=== PATIENT | female | born 1950 | race Caucasian/White ===

== ENCOUNTER 2017-10-27 09:34 | Outpatient (CLI) | payer MEDICARE, MEDICAID ==
[~2017-10-27] VITALS: Ht 160 cm; Wt 59.0 kg
[2017-10-27 10:09] VITALS: BP 129/65
[2017-10-27] MEDS ORDERED: BENAZEPRIL HCL10 MG ORAL (15:30)
[2017-10-27] MEDS ORDERED: METFORMIN HCL500 M1 ORAL (15:30)
--- NOTE | 2017-10-28 09:46 | GI Initial Consult Note ---
History of Present Illness General Date patient seen: October 27, 2017 Time patient seen: 10:00 Referring physician: TARUN Reason for Consultation: SEVERE GERD Present Illness HPI 67 year female patient who presents today c/o of severe GERD. States she has constant "gurgling" in her stomach and upset stomach. Takes probiotics in which she feels has helped. In addition, the patient presents with constipation having BMs every other day and abdominal bloating. Denies any unintentional weight loss or changes in dietary habits. No signs of abuse or neglect. Patient is not fall risk. Last colonoscopy has been over 5 years ago. Home Meds Reported Medications Benazepril Hcl* (BENAZEPRIL HCL*) 10 Mg Tablet, ORAL DAILY, TAB 10/27/17 Metformin Hcl* (METFORMIN HCL*) 500 Mg Tablet, ORAL TWICE A DAY, TAB 10/27/17 Med list reviewed/reconciled: Yes Patient History History Provided By: Patient, Medical Record PMH Narrative HTN DM Past Surgical History: Cataract Pertinent Family History: none Social History: Reports: other - occasional coffee; Denies: smoking, alcohol use, drug use Review of Systems All Other Systems: negative except mentioned in HPI Physical Exam Vital Signs Date Time Temp Pulse Resp B/P (MAP) Pulse Ox O2 Delivery O2 Flow Rate FiO2 10/27/17 10:09 97.5 67 16 129/65 97 97.5 Sp02 EP Interpretation: reviewed, normal General Appearance: well appearing, no apparent distress, alert Head: normocephalic EENT: PERRL/EOMI, normal ENT inspection Neck: supple Respiratory: normal breath sounds, no respiratory distress Cardiovascular: normal rate Gastrointestinal: normal inspection, non tender, soft, normal bowel sounds, non -distended Rectal: deferred Genitourinary: no CVA tenderness Musculoskeletal: normal inspection, back normal Neurologic: normal inspection, alert, oriented x3, responsive Psychiatric: normal inspection, judgement/insight normal, memory normal Skin: normal inspection, normal color, no rash, warm/dry, palpation normal, well hydrated Lymphatic: normal inspection, no adenopathy GI: Plan Problems: (1) HTN (hypertension) (2) GERD (gastroesophageal reflux disease) (3) Bloating (4) Constipated (5) Diabetes mellitus (6) Colonoscopy planned Plan EGD/colonoscopy scheduled 11/06/17. - CLD & (Nulytely/Suprep/Movi-Prep) prep instructions given and acknowledged by patient. - NPO @ MN day prior procedure explained. Rx Miralax will revisit abdominal bloating during next appointment, consider ?Xifaxan labs on day of procedure >> CBC, CMP, CEA Seen with Dr. Sebastian. Thank you for this patient referral. The patient was seen and examined at bedside and all new and available data was reviewed in the patients chart. I agree with the above findings, impression and plan. (Patient seen earlier today. Signature stamp does not reflect patient encounter time.). - MD Camilla L[facility]pezB[facility] October 28, 2017 09:46
[2017-11-06] MEDS ORDERED: SIMVASTATIN10 MG ORAL (08:13)
== END 2017-10-27 10:05 | disposition home or self-care (01) ==
LOC: PAN 09:34
DX: K21.9 Gastro-esophageal reflux disease without esophagitis (principal); K59.00 Constipation, unspecified; E11.9 Type 2 diabetes mellitus without complications; I10 Essential (primary) hypertension
CPT/HCPCS: 99202

== ENCOUNTER 2017-11-30 12:55 | Outpatient (CLI) | payer MEDICARE, MEDICAID ==
[~2017-11-30 12:55] MED LIST: BENAZEPRIL HCL10 MG ORAL; METFORMIN HCL500 M1 ORAL; SIMVASTATIN10 MG ORAL
[2017-11-30 13:00] VITALS: BP 138/74
--- NOTE | 2017-11-30 14:44 | GI Progress Note ---
Assessment/Plan Problems: (1) Bloating ICD Codes: R14.0 - Abdominal distension (gaseous) SNOMED: 338807501 (2) GERD (gastroesophageal reflux disease) ICD Codes: K21.9 - Gastro-esophageal reflux disease without esophagitis SNOMED: 779162266 (3) Diabetes mellitus ICD Codes: E11.9 - Type 2 diabetes mellitus without complications SNOMED: 58847825 (4) Constipated ICD Codes: K59.00 - Constipation, unspecified SNOMED: 99783385 (5) HTN (hypertension) ICD Codes: I10 - Essential (primary) hypertension SNOMED: 33122127 Status: stable Status Narrative Seen with Dr. Sebastian. Assessment/Plan SUMMARY OF FINDINGS reviewed with patient: 1. Gastritis, status post biopsy. 2. Three colonic polyps. 3. Internal hemorrhoids. RECOMMENDATIONS: 1. Follow up biopsy results. >> negative for H. pylori 2. Given three polyps, we recommend repeat colonoscopy in three years. RTC prn The patient was seen and examined at bedside and all new and available data was reviewed in the patients chart. I agree with the above findings, impression and plan. (Patient seen earlier today. Signature stamp does not reflect patient encounter time.). - Jaxson Sebastian MD Subjective Gastrointestinal/Abdominal: Reports: no symptoms Objective T 98.1 BP 138/74 P 81 99 RA General Appearance: WD/WN, no apparent distress, alert Cardiovascular: normal rate Respiratory/Chest: normal breath sounds, no respiratory distress Abdominal Exam: normal bowel sounds, non tender, soft Extremities: normal range of motion, non-tender Ca Sampson NP Nov 30, 2017 14:44
== END 2017-11-30 13:28 | disposition home or self-care (01) ==
LOC: PAN 12:55
DX: R14.0 Abdominal distension (gaseous) (principal); K21.9 Gastro-esophageal reflux disease without esophagitis; E11.9 Type 2 diabetes mellitus without complications; K59.00 Constipation, unspecified; I10 Essential (primary) hypertension; K29.70 Gastritis, unspecified, without bleeding; K63.5 Polyp of colon; K64.8 Other hemorrhoids
CPT/HCPCS: 99212

== ENCOUNTER 2019-04-12 09:20 | Outpatient (CLI) | payer MEDICARE, MEDICAID ==
--- NOTE | 2019-04-12 11:38 | General Progress Note ---
Assessment/Plan Problem List: (1) Constipated ICD Codes: K59.00 - Constipation, unspecified SNOMED: 67778381 (2) HTN (hypertension) ICD Codes: I10 - Essential (primary) hypertension SNOMED: 77999395 (3) GERD (gastroesophageal reflux disease) ICD Codes: K21.9 - Gastro-esophageal reflux disease without esophagitis SNOMED: 133193774 (4) Diabetes mellitus ICD Codes: E11.9 - Type 2 diabetes mellitus without complications SNOMED: 03098156 Assessment/Plan: SUMMARY OF FINDINGS: 1. Gastritis, status post biopsy. 2. Three colonic polyps. 3. Internal hemorrhoids. Align miralax repeat colon 2020 Subjective ROS Limited/Unobtainable: Yes Allergies: Coded Allergies: Shrimp (Verified Allergy, Severe, 11/06/17) SWELLING OF LIPS AND EARS Objective General Appearance: alert EENT: normal ENT inspection Neck: supple Cardiovascular: normal rate Respiratory/Chest: decreased breath sounds Abdomen: normal bowel sounds, non tender, soft Extremities: non-tender Jaxson Sebastian MD Apr 12, 2019 11:38
[2019-04-12 13:17] VITALS: BP 133/59
== END 2019-04-12 11:20 | disposition home or self-care (01) ==
LOC: PAN 09:20
DX: K59.00 Constipation, unspecified (principal); I10 Essential (primary) hypertension; K21.9 Gastro-esophageal reflux disease without esophagitis; E11.9 Type 2 diabetes mellitus without complications; K29.70 Gastritis, unspecified, without bleeding; K63.5 Polyp of colon; K64.8 Other hemorrhoids; Z91.013 Allergy to seafood
CPT/HCPCS: 99212

== ENCOUNTER 2020-04-03 10:25 | Outpatient (CLI) | payer MEDICARE, MEDICAID ==
[2020-04-03 10:46] VITALS: BP 133/89
[2020-04-03] MEDS ORDERED: BISACODYL5 MG ORAL (10:46)
[2020-04-03] MEDS ORDERED: VITAMIN C500 M1 ORAL (10:46)
[2020-04-03] MEDS ORDERED: VITAMIN D325 MC1 PO (10:46)
[2020-04-03] MEDS ORDERED: VITAMIN E200 UNIT PO (10:46)
[2020-04-03] MEDS ORDERED: PROBIOTIC-10 11 EACH PO (10:50)
--- NOTE | 2020-04-03 11:18 | General Progress Note ---
Subjective ROS Limited/Unobtainable: Yes Allergies: Coded Allergies: Shrimp (Verified Allergy, Severe, 11/06/17) SWELLING OF LIPS AND EARS Objective Last 24 Hour Vital Signs Date Time Temp Pulse Resp B/P (MAP) Pulse Ox O2 Delivery O2 Flow Rate FiO2 04/03/20 10:46 97.3 85 16 133/89 97 General Appearance: alert EENT: normal ENT inspection Neck: supple Cardiovascular: normal rate Respiratory/Chest: decreased breath sounds Abdomen: normal bowel sounds, non tender, soft Extremities: non-tender Assessment/Plan Assessment/Plan: Assessment/Plan Problem List: (1) Constipated ICD Codes: K59.00 - Constipation, unspecified SNOMED: 70082787 (2) HTN (hypertension) ICD Codes: I10 - Essential (primary) hypertension SNOMED: 62158619 (3) GERD (gastroesophageal reflux disease) ICD Codes: K21.9 - Gastro-esophageal reflux disease without esophagitis SNOMED: 967721917 (4) Diabetes mellitus ICD Codes: E11.9 - Type 2 diabetes mellitus without complications SNOMED: 56236461 Assessment/Plan: SUMMARY OF FINDINGS: 1. Gastritis, status post biopsy. 2. Three colonic polyps. 3. Internal hemorrhoids. Align linzess 72 repeat colon 2020 Jaxson Sebastian MD Apr 03, 2020 11:18
== END 2020-04-03 12:25 | disposition home or self-care (01) ==
LOC: PAN 10:25
DX: K59.00 Constipation, unspecified (principal); I10 Essential (primary) hypertension; K21.9 Gastro-esophageal reflux disease without esophagitis; E11.9 Type 2 diabetes mellitus without complications; K64.8 Other hemorrhoids; K63.5 Polyp of colon; K29.70 Gastritis, unspecified, without bleeding
CPT/HCPCS: 99212